=== PATIENT | male | born 1945 ===

== ENCOUNTER 2024-03-24 14:12 | Emergency (ER) | payer SELFPAY ==
[2024-03-24] MEDS: Fluorescein 1 MG Ophth Strip EYERT ONE (14:52)
[2024-03-24] MEDS: Tetracaine HCl/PF 0.5% 4 ML Bottle EYERT ONE (14:52)
[2024-03-24 14:58] LABS: BASOPHILS PERCENT AUTO 0.3 % (0.0-1.0); EOSINOPHILS PERCENT AUTO 1.5 % (1.0-3.0); HEMATOCRIT 35.9 % (40.0-54.0); HEMOGLOBIN 11.9 g/dL (14.0-18.0); MEAN CORPUSCULAR HEMOGLOBIN 31.6 pg (27.0-34.0); MEAN CORPUSCULAR HGB CONC 33.1 g/dL (33.0-35.0); MEAN CORPUSCULAR VOLUME 95.2 fL (80-100); MONOCYTES PERCENT AUTO 6.9 % (2-8); NEUTROPHILS PERCENT AUTO 61.3 % (42.2-75.2); PLATELET COUNT,PLT 203 10^3/uL (150-450); RED BLOOD CELL COUNT 3.77 10^6/uL (4.6-6.2); WHITE BLOOD CELL COUNT,WBC 7.5 10^3/uL (5.0-10.0)
[2024-03-24 15:20] LABS: A/G RATIO 1.2; ALANINE AMINOTRANSFERASE,ALT 29 U/L (16-63); ALBUMIN 3.7 g/dL (3.4-5.0); ALKALINE PHOSPHATASE 108 U/L (46-116); ANION GAP 9.4 mEq/L (7-13); ASPARTATE AMNIOTRANSFERASE,AST 25 U/L (15-37); BILIRUBIN TOTAL 1.9 mg/dL (0.2-1.0); BLOOD UREA NITROGEN,BUN 22 mg/dL (7-18); BUN/CREATININE RATIO 21.2 (No establ ref range); C-REACTIVE PROTEIN < 0.50 ng/dL (<=0.50); CALCIUM 9.3 mg/dL (8.5-10.1); CARBON DIOXIDE,CO2 27 mmol/L (21-32); CHLORIDE,CL 103 mmol/L (98-107); CREATININE 1.04 mg/dL (0.70-1.30); EST CRCL DRUG DOSING (CG) 48.23 mL/min; ESTIMATED GFR 73 mL/min (>=60); GLUCOSE RANDOM 145 mg/dL (70-99); POTASSIUM,K 3.4 mmol/L (3.5-5.1); PROTEIN TOTAL,TP 6.9 g/dL (6.4-8.2); SODIUM,NA 136 mmol/L (136-145)
[2024-03-24] MEDS ORDERED: Sodium Chloride 0.9% 10 ML Syringe FLUSH PRN (15:24)
[2024-03-24 15:35] LABS: SEDIMENTATION RATE MANUAL 4 mm/hr (0-15)
[2024-03-24] MEDS: Iopamidol 755 Mg/ML 100 ML Bottle IVPUSH ONE (15:37)
[2024-03-24] MEDS: Sodium Chloride 0.9% 500 ML IV ONE (15:49)
== END 2024-03-24 18:02 ==
LOC: DL.ED 14:12
DX: H54.61 Unqualified visual loss, right eye, normal vision left eye (principal); I10 Essential (primary) hypertension; E78.00 Pure hypercholesterolemia, unspecified; Z79.82 Long term (current) use of aspirin; Z79.899 Other long term (current) drug therapy
CPT/HCPCS: 36415; 70450; 70496; 70498; 80053; 85025; 85651; 86140; 99284; 99285; J3490; J7040; Q9967